=== PATIENT | male | born 2000 | race African-American/Black ===

== ENCOUNTER 2024-10-10 13:43 | Emergency (ER) | payer OTHER, SELFPAY ==
[2024-10-10] VITALS (13 sets, daily range): BP systolic 118–154; BP diastolic 60–88; PULSE 55–67; RESP 12–22; TEMP 36.7; O2SAT 99–100; BMI 27.6
--- NOTE | 2024-10-10 13:52 | EKG_ITS ---
[address] [address] Test Date: 2024-10-10 Pat Name: Brent Garrido Department: Room: Gender: Male [employer]: [employer] : 2000 Requested By: Order Number: [id number] Reading MD: Tacho Cummins Measurements Intervals [place] Rate: 61 P: 27 [place]: 124 QRS: 61 QRSD: 94 T: 56 QT: 348 QTc: 350 Interpretive Statements Normal sinus rhythm Electronically Signed On 10-10-2024 18:22:26 PST by Tacho Cummins
--- NOTE | 2024-10-10 13:58 | DI.RAD.S_ITS ---
PROCEDURE: XR CHEST 1V INDICATIONS: chest pain TECHNIQUE: One view of the chest was acquired. COMPARISON: None. FINDINGS: Surgical changes and devices: None. Lungs and pleura: Lungs are clear. No pleural effusions or pneumothorax. Mediastinum: Mediastinal contours appear normal. Heart size is normal. Bones and chest wall: No suspicious bony lesions. Overlying soft tissues appear unremarkable. IMPRESSION: No acute cardiopulmonary abnormality is seen. Dictated by: Emmanuel Chapman M.D. on 10/10/2024 at 14:33 Approved by: Emmanuel Chapman M.D. on 10/10/2024 at 14:33
[2024-10-10] MEDS: ONDANSETRON 4 MG ODT SL (14:05)
--- NOTE | 2024-10-10 14:51 | ED.CHESTPAIN ---
HPI - Chest Pain General Chief Complaint: Chest Pain Stated Complaint: chest and abd px, vomiting Time Seen by Provider: 10/10/24 13:58 Source: patient and family Mode of arrival: Ambulatory Limitations: no limitations History of Present Illness HPI narrative: Patient was an otherwise healthy 23-year-old male here for evaluation of right-sided chest pain and right-sided abdominal pain. He states the symptoms occurred shortly after waking up this morning. He had abdominal pain and vomiting that started about the same time and then chest pain starting after the vomiting. No diarrhea. No urinary symptoms. No prior abdominal surgeries. Has not tried anything for symptoms prior to arrival. He denies any cough. No fevers. Related Data Previous Rx's Medication Instructions Recorded ondansetron 4 mg disintegrating 4 mg PO Q6H PRN nausea and 10/10/24 tablet vomiting #10 tabs sucralfate 100 mg/mL oral 10 ml PO QACHS #414 mL 10/10/24 suspension (Carafate) Allergies Allergy/AdvReac Type Severity Reaction Status Date / Time No Known Drug Allergies Allergy Verified 10/10/24 13:51 Review of Systems Review of Systems ROS Unobtainable: All systems reviewed & are unremarkable except as noted in HPI and below Patient History Social History Smoking Status: Current some day smoker Smoking Status: Current some day smoker tobacco type: cigarettes Exam Initial Vital Signs Initial Vital Signs: Vital Signs Temperature 98.1 F 10/10/24 13:45 Pulse Rate 57 L 10/10/24 13:45 Respiratory Rate 18 10/10/24 13:45 Blood Pressure 131/71 10/10/24 13:45 Pulse Oximetry 99 10/10/24 13:45 Oxygen Delivery Method Room Air 10/10/24 13:45 Const General: cooperative, comfortable and No ill appearing HENMT Head: normal to inspection and normocephalic Resp Effort & Inspection: normal respiratory effort Auscultation: clear to auscultation bilaterally Cardio Rate: regular rate Rhythm: regular rhythm GI Inspection: non-distended Palpation: soft, No firm, No guarding and tender (Right lower quadrant) Back/Spine/Pelvis Back: No CVA tenderness Skin General: no rashes or lesions noted Neuro General: patient alert and patient awake Course Orders Ordered: ED Orders 10/10/24 13:52 EKG-12 Lead Stat 10/10/24 13:58 XR chest 1V Stat 10/10/24 14:05 Complete Blood Count AUTO DIFF Stat Comprehensive Metabolic Panel Stat Lipase Stat 10/10/24 14:52 CT abdomen pelvis w con Stat Discontinued Medications Ondansetron HCl (Ondansetron 4 Mg Odt) 4 mg SL NOW ONE Stop: 10/10/24 14:00 Last Admin: 10/10/24 14:05 Dose: 4 mg Documented By: JOSIE Vital Signs Vital signs: Vital Signs - 8 hr 10/10/24 13:45 10/10/24 13:58 10/10/24 13:59 Temperature 98.1 F Pulse Rate 57 L 63 Respiratory Rate 18 Blood Pressure 131/71 143/88 H Pulse Oximetry 99 Oxygen Delivery Method Room Air 10/10/24 13:59 10/10/24 14:00 10/10/24 14:00 Temperature Pulse Rate 60 63 Respiratory Rate 22 21 Blood Pressure 145/85 H Pulse Oximetry 100 99 Oxygen Delivery Method 10/10/24 14:30 10/10/24 14:30 10/10/24 15:00 Temperature Pulse Rate 65 67 Respiratory Rate 18 21 Blood Pressure 131/69 Pulse Oximetry 100 100 Oxygen Delivery Method 10/10/24 15:01 10/10/24 15:01 10/10/24 15:30 Temperature Pulse Rate 61 Respiratory Rate 15 Blood Pressure 154/82 H 125/69 Pulse Oximetry 100 Oxygen Delivery Method 10/10/24 15:30 10/10/24 15:48 10/10/24 15:48 Temperature Pulse Rate 58 L 55 L Respiratory Rate 15 12 Blood Pressure 135/69 Pulse Oximetry 100 100 Oxygen Delivery Method 10/10/24 16:00 10/10/24 16:00 10/10/24 16:30 Temperature Pulse Rate 56 L Respiratory Rate 16 Blood Pressure 136/77 118/60 Pulse Oximetry 100 Oxygen Delivery Method 10/10/24 16:30 10/10/24 17:00 10/10/24 17:00 Temperature Pulse Rate 63 60 Respiratory Rate 17 20 Blood Pressure 122/69 Pulse Oximetry 100 100 Oxygen Delivery Method MDM - Chest Pain Lab Data Attestation: I reviewed the patient's lab results. 10/10/24 14:05 10/10/24 14:05 Labs: Lab Results 10/10/24 Range/Units 14:05 WBC 6.5 (4.5-11.0) X10^3/uL RBC 5.84 (4.5-5.9) X10^6/uL Hgb 16.5 (13.5-17.5) g/dL Hct 49.8 (41-53) % MCV 85.3 (80-100) fL MCH 28.2 (26-34) PG MCHC 33.1 (30-36) % RDW 13.7 (11.6-14.8) % Plt Count 224 (150-400) X10^3/uL Neut % (Auto) 52.2 (50-75) % Lymph % (Auto) 33.1 (25-40) % [place] % (Auto) 11.0 (3-14) % Eos % (Auto) 3.1 (2-4) % Baso % (Auto) 0.6 (0-2) % Neut # (Auto) 3400 (2801-9348) /uL Lymph # (Auto) 2100 (7758-0825) /uL [place] # (Auto) 700 (0-900) /uL Eos # (Auto) 200 (0-450) /uL Baso # (Auto) 0 (0-100) /uL Sodium 141 (137-145) mmol/L Potassium 4.1 (3.4-5.1) mmol/L Chloride 104 (98-107) mmol/L Carbon Dioxide 30 (22-32) mmol/L BUN 15 (9-20) mg/dL Creatinine 0.82 (0.66-1.25) mg/dL Estimated GFR > 60 (>60) mL/min BUN/Creatinine Ratio 18.3 (6-22) Glucose 48 L (70-100) mg/dL Calcium 9.4 (8.4-10.2) mg/dL Total Bilirubin 0.5 (0.2-1.3) mg/dL AST 40 (17-59) IU/L ALT 27 (<50) IU/L Alkaline Phosphatase 67 (38-126) U/L Total Protein 7.9 (6.3-8.2) g/dL Albumin 4.5 (3.5-5.0) g/dL Globulin 3.4 (1.7-4.1) g/dL Albumin/Globulin Ratio 1.3 (1.0-2.8) Lipase 49 (23-300) U/L Urine Dip Bedside Urine Glucose Negative Bedside Urine Bilirubin - Negative Bedside Urine Ketone - Negative Urine Specific [place] 1.015 Bedside Urine Occult Blood - Negative Bedside Urine pH 6.5 Bedside Urine Protein - Negative Bedside Urine Urobilinogen - Negative Bedside Urine Nitrite - Negative Bedside Urine Leukocytes - Negative Esterase Imaging Data Chest x-ray: Radiologist's Impression: PROCEDURE: XR CHEST 1V INDICATIONS: chest pain TECHNIQUE: One view of the chest was acquired. COMPARISON: None. FINDINGS: Surgical changes and devices: None. Lungs and pleura: Lungs are clear. No pleural effusions or pneumothorax. Mediastinum: Mediastinal contours appear normal. Heart size is normal. Bones and chest wall: No suspicious bony lesions. Overlying soft tissues appear unremarkable. IMPRESSION: No acute cardiopulmonary abnormality is seen. CT scan - abdomen/pelvis: Radiologist's Impression: PROCEDURE: CT ABDOMEN PELVIS W CON INDICATIONS: RLQ abd pain TECHNIQUE: After the administration of intravenous contrast, axial sections acquired from the lung bases to the pubic symphysis. Coronal and sagittal reformats were performed. For radiation dose reduction, the following was used: automated exposure control, adjustment of mA and/or kV according to patient size. COMPARISON: None. FINDINGS: Image quality: Diagnostic. Lower Chest: No significant findings. ABDOMEN: Liver: No solid mass. Gallbladder: No radiopaque gallstones or wall thickening. Biliary ducts: No biliary dilation. Pancreas: No ductal dilation. Spleen: Size is within normal limits. Adrenal Glands: No adrenal nodules. Kidneys and Ureters: No hydronephrosis. No solid mass. No complex renal cystic lesion which requires follow up. Stomach and Bowel: Normal colonic caliber, without significant wall thickening. Normal appendix. Moderate colonic stool load. Peritoneum: No abnormal intraperitoneal fluid. No free air. Ventral Wall: No significant ventral hernia. Abdominal Nodes: No retroperitoneal or mesenteric adenopathy by size criteria. Vessels: Aorta and inferior vena cava are normal in size. PELVIS: Pelvic Organs: Unremarkable. Bladder: Diffuse bladder wall thickening. Pelvic Nodes: No enlarged lymph nodes. Miscellaneous: No inguinal hernias are seen. Bones: No aggressive osseous abnormality. IMPRESSION: Diffuse bladder wall thickening, suggestive of cystitis. Moderate colonic stool load. Otherwise, no acute abnormality. Normal appendix. No nephrolithiasis. Normal gallbladder. ECG Data Interpretation: Sinus rhythm Ventricular rate [address] T wave changes MDM Narrative Medical decision making narrative: Patient has a benign exam. Afebrile. Chest x-ray is unremarkable. CT scan of the abdomen and pelvis is unremarkable. EKGs unremarkable. Low suspicion for ACS. I do suspect that his chest discomfort and the bleeding with the vomiting are most likely from his vomiting/[place] tears. There was no indication for surgical intervention. His urinalysis not consistent with cystitis. For now will treat symptoms with Zofran and Carafate. He was given return precautions and follow-up instructions. Mother expressed understanding and agreement with the plan. Discharge Plan Departure Patient Disposition: Home Clinical Impression: Abdominal pain, Vomiting Instructions: DI for Abdominal Pain-Adult, DI for Vomiting -- Adult Activity Restrictions/Additional Instructions: I do recommend that you use the medications she was prescribed today as directed. Contact your primary care doctor for a follow-up. Return to the emergency department for new or worsening symptoms. Prescriptions: New ondansetron 4 mg tablet,disintegrating 4 mg PO Q6H PRN (Reason: nausea and vomiting) Qty: 10 0RF sucralfate [Carafate] 100 mg/mL suspension 10 ml PO QACHS Qty: 414 0RF Referrals: Miscellaneous,Doctor, MD [Primary Care Provider] - Stand Alone Forms: Patient Portal/API/Survey
[2024-10-10 15:13] LABS: Add Manual Diff / Slide Review NO; Basophils Absolute Auto 0 /uL (0-100); Basophils Percent Auto 0.6 % (0-2); Eosinophils Absolute Auto 200 /uL (0-450); Eosinophils Percent Auto 3.1 % (2-4); Hematocrit 49.8 % (41-53); Hemoglobin 16.5 g/dL (13.5-17.5); Lymphocytes Absolute Auto 2100 /uL (1100-4500); Lymphocytes Percent Auto 33.1 % (25-40); Mean Corpuscular HGB Conc 33.1 % (30-36); Mean Corpuscular Hemoglobin 28.2 PG (26-34); Mean Corpuscular Volume 85.3 fL (80-100); Monocytes Absolute Auto 700 /uL (0-900); Neutrophils Absolute Auto 3400 /uL (1500-7000); Neutrophils Percent Auto 52.2 % (50-75); Platelet Count 224 X10^3/uL (150-400); Red Blood Cell Count 5.84 X10^6/uL (4.5-5.9); Red Cell Distribution Width 13.7 % (11.6-14.8); White Blood Cell Count 6.5 X10^3/uL (4.5-11.0)
[2024-10-10 15:20] LABS: Alanine Aminotransferase 27 IU/L (<50); Albumin 4.5 g/dL (3.5-5.0); Albumin Globulin Ratio 1.3 (1.0-2.8); Alkaline Phosphatase 67 U/L (38-126); Aspartate Aminotransferase 40 IU/L (17-59); BUN Creatinine Ratio 18.3 (6-22); Bilirubin Total 0.5 mg/dL (0.2-1.3); Blood Urea Nitrogen 15 mg/dL (9-20); Calcium 9.4 mg/dL (8.4-10.2); Carbon Dioxide 30 mmol/L (22-32); Chloride 104 mmol/L (98-107); Estimated Glomerular Filt Rate > 60 mL/min (>60); Globulin 3.4 g/dL (1.7-4.1); Glucose 48 mg/dL (70-100); HEMOLYSIS 31 (0-50); Lipase 49 U/L (23-300); Potassium 4.1 mmol/L (3.4-5.1); Sodium 141 mmol/L (137-145); Total Protein 7.9 g/dL (6.3-8.2)
== END 2024-10-10 17:48 | disposition home or self-care (01) ==
PROVIDERS: Emergency Provider Emergency Medicine
DX: R07.9 Chest pain, unspecified (principal); R10.9 Unspecified abdominal pain; R11.2 Nausea with vomiting, unspecified
CPT/HCPCS: 36415; 71045; 74177; 80053; 81003; 83690; 85025; 93005; 99283; 99284; Q9967